=== PATIENT | female | born 1945 | race Hispanic/Latino ===

== ENCOUNTER → 2017-08-23 | Outpatient (CLI) | payer OTHER ==
[~2017-08-23] MED LIST: ATOR40TA71 PO; ESOM40CA54 PO; ISOS30TA11 PO; METO-408 PO; REGADENOSON 0.4 MG/5 ML PF SYG IVP SCH
== END | disposition home or self-care (01) ==
LOC: SHCH 08:16
PROVIDERS: ATTEND Internal Medicine Cardiovascular Disease
DX: R07.9 Chest pain, unspecified (principal); R06.02 Shortness of breath
CPT/HCPCS: 78452; 93017; 96374; A9500 ×2; J2785

== ENCOUNTER 2017-09-05 07:38 | Day surgery (SDC) | payer OTHER ==
[2017-09-01 10:40] VITALS: BP 142/77
[2017-09-01 11:03] LABS: BASOPHILS % (AUTO) 0.5 % (0.0-5.0); EOSINOPHILS % (AUTO) 2.2 % (0.0-8.0); HEMATOCRIT 36.2 % (36-48); LYMPHOCYTES % (AUTO) 30.6 % (21.0-51.0); MEAN CORPUSCULAR HEMOGLOBIN 22.6 pg (27.0-33.0); MEAN CORPUSCULAR HGB CONC 31.8 g/dL (32.0-36.0); MEAN CORPUSCULAR VOLUME 71.2 fL (79-99); MONOCYTES % (AUTO) 9.1 % (3.0-13.0); NEUTROPHILS % (AUTO) 57.6 % (40.0-77.0); NUCLEATED RED BLOOD CELLS 0.1 % (0.0-0.19); PLATELET COUNT (AUTO) 349 K/uL (130-400); RED BLOOD CELL COUNT(AUTO) 5.09 MIL/uL (4.00-5.50); RED CELL DISTRIBUTION WIDTH 18.4 % (11.0-15.5)
[2017-09-01 11:06] LABS: APPEARANCE,URINE Clear (CLEAR); BILIRUBIN,URINE Negative (NEGATIVE); COLOR,URINE Yellow (YELLOW); GLUCOSE, URINE (UA) Negative (NEGATIVE); KETONES,URINE Negative (NEGATIVE); LEUKOCYTE ESTERASE ,URINE Small (NEGATIVE); NITRATE,URINE Negative (NEGATIVE); OCCULT BLOOD,URINE Negative (NEGATIVE); PH,URINE 7.5 (5.0-8.0); PROTEIN,URINE Negative (NEGATIVE)
[2017-09-01 11:10] LABS: CREATININE 0.9 mg/dL (0.5-1.5)
[2017-09-01 11:13] LABS: BACTERIA,URINE Rare /HPF (None Seen); SQUAMOUS EPITHELIAL CELL,UR Few /HPF (0-2); WBC,URINE 0-1 /HPF (0-1)
[2017-09-01 11:38] LABS: INR 0.94 (0.85-1.15); PARTIAL THROMBOPLASTIN TIME 25.7 SEC (26.3-35.5); PROTHROMBIN TIME 9.9 SEC (9.6-11.6)
[2017-09-05] VITALS (9 sets, daily range): BP systolic 100–140; BP diastolic 60–88
[~2017-09-05] VITALS: Ht 160 cm; Wt 58.2 kg
[~2017-09-05 07:38] MED LIST changes: -REGADENOSON 0.4 MG/5 ML PF SYG IVP SCH; +SODIUM CHLORIDE 0.9% 500ML 500 ML IV SCH
[2017-09-05] MEDS ORDERED: SODIUM CHLORIDE 0.9% 1000ML 1,000 ML IV ONE (08:45)
[2017-09-05] MEDS ORDERED: BUPIVACAINE/PF 0.25% 30ML VIAL IJ ONE (09:42)
[2017-09-05] MEDS ORDERED: IOHEXOL-350 50ML VIAL IV ONE (09:42)
[2017-09-05] MEDS ORDERED: NITROGLYCERIN 5 MG/ML 10 ML VIAL IV ONE (09:42)
[2017-09-05] MEDS ORDERED: IOHEXOL 350 MG/ML 100ML INFUS..BTL IV ONE (09:42)
[2017-09-05] MEDS ORDERED: LIDOCAINE HCL-MPF 2% 5ML VIAL ONE (10:06)
[2017-09-05] MEDS ORDERED: METOPROLOL TARTRATE 1 MG/ML 5ML VIAL IV PRN (10:30)
[2017-09-05] MEDS ORDERED: SODIUM CHLORIDE 0.9% 1000ML 1,000 ML IV SCH (10:30)
[2017-09-05] MEDS ORDERED: NITROGLYCERIN 0.4 MG SL TAB SL PRN (10:30)
[2017-09-05] MEDS ORDERED: DEXTROSE 50%-WATER 50 ML DISP.SYRIN IV PRN (10:30)
[2017-09-05] MEDS ORDERED: GLUCAGON 1MG KIT 1 MG ML IM PRN (10:30)
[2017-09-05] MEDS ORDERED: HYDRALAZINE HCL 20 MG/ML VIAL IV PRN (10:30)
== END 2017-09-05 14:55 | disposition home or self-care (01) ==
LOC: DAH 07:38
PROVIDERS: ATTEND Internal Medicine Cardiovascular Disease
DX: I25.10 Atherosclerotic heart disease of native coronary artery without angina pectoris (principal); I10 Essential (primary) hypertension; E78.5 Hyperlipidemia, unspecified; Z82.49 Family history of ischemic heart disease and other diseases of the circulatory system; Z79.899 Other long term (current) drug therapy; Z79.82 Long term (current) use of aspirin
CPT/HCPCS: 36415; 71045; 80048; 81001; 85025; 85610; 85730; 93005; 93458; A4606; C1760; C1894 ×3; J1644; J3490 ×2; J7030; Q9965; Q9967 ×2

== ENCOUNTER → 2019-04-24 | Outpatient (CLI) | payer OTHER ==
[~2019-04-24] MED LIST changes: -SODIUM CHLORIDE 0.9% 500ML 500 ML IV SCH
== END | disposition home or self-care (01) ==
LOC: RAH 08:39
PROVIDERS: ATTEND Internal Medicine Gastroenterology
DX: K44.9 Diaphragmatic hernia without obstruction or gangrene (principal); K21.9 Gastro-esophageal reflux disease without esophagitis; R13.10 Dysphagia, unspecified; D50.9 Iron deficiency anemia, unspecified
CPT/HCPCS: 74240

== ENCOUNTER → 2021-05-21 | Outpatient (CLI) | payer OTHER | END | disposition home or self-care (01) | LOC: RAH 10:34 | PROVIDERS: ATTEND Internal Medicine Gastroenterology | DX: K76.0 Fatty (change of) liver, not elsewhere classified (principal) | CPT/HCPCS: 76700 ==

== ENCOUNTER → 2021-06-04 | Outpatient (CLI) | payer OTHER | END | disposition home or self-care (01) | LOC: RAH 09:20 | PROVIDERS: ATTEND Internal Medicine Gastroenterology | DX: K44.9 Diaphragmatic hernia without obstruction or gangrene (principal); K21.9 Gastro-esophageal reflux disease without esophagitis | CPT/HCPCS: 74240 ==

== ENCOUNTER 2021-12-16 06:48 | Observation (INO) | payer OTHER, MEDICARE ==
[2021-12-10 12:59] LABS: BASOPHILS % (AUTO) 0.5 % (0.0-5.0); HEMATOCRIT 40.8 % (36-48); LYMPHOCYTES % (AUTO) 24.7 % (21.0-51.0); MEAN CORPUSCULAR HEMOGLOBIN 24.4 pg (27.0-33.0); MEAN CORPUSCULAR HGB CONC 30.9 g/dL (32.0-36.0); MEAN CORPUSCULAR VOLUME 78.9 fL (79-99); MONOCYTES % (AUTO) 9.9 % (3.0-13.0); NEUTROPHILS % (AUTO) 62.8 % (40.0-77.0); PLATELET COUNT (AUTO) 330 K/uL (130-400); RED BLOOD CELL COUNT(AUTO) 5.17 MIL/uL (4.00-5.50); RED CELL DISTRIBUTION WIDTH 16.5 % (11.0-15.5); WHITE BLOOD COUNT (AUTO) 7.5 K/uL (4.8-10.8)
[2021-12-10 13:08] LABS: CREATININE 0.8 mg/dL (0.5-1.5); POTASSIUM 4.3 mmol/L (3.5-5.1)
[2021-12-15 13:26] VITALS: BP 157/87
[2021-12-16] VITALS (26 sets, daily range): BP systolic 130–166; BP diastolic 57–88
[~2021-12-16] VITALS: Ht 162.6 cm; Wt 107.5 kg
[~2021-12-16 06:48] MED LIST changes: -ATOR40TA71 PO; -ESOM40CA54 PO; +GABA-529 PO; -ISOS30TA11 PO; +MV-M1TAB20 PO; +PANT40TA54 PO; +SUCR1TAB2 PO
[2021-12-16] MEDS ORDERED: CEFAZOLIN SODIUM 1 GM VIAL ONE (07:32)
[2021-12-16] MEDS ORDERED: LACTATED RINGERS 1000ML 1,000 ML IV ONE (07:32)
[2021-12-16] MEDS ORDERED: BUPIVACAINE/PF 0.25% 30ML VIAL IJ ONE (09:44)
[2021-12-16] MEDS ORDERED: FENTANYL CITRATE PF 50 MCG/1 ML 2ML VIAL ONE (11:55)
[2021-12-16] MEDS ORDERED: PROPOFOL 10 MG/ML 20ML VIAL IV ONE (11:55)
[2021-12-16] MEDS ORDERED: SUCCINYLCHOLINE 200MG/10ML SYR ONE (11:55)
[2021-12-16] MEDS ORDERED: ROCURONIUM 10MG/1ML SYR 10 MG/ML ML ONE (11:55)
[2021-12-16] MEDS ORDERED: LIDOCAINE PF 100MG/5ML (2%) SYRINGE 5ML ONE (11:55)
[2021-12-16] MEDS ORDERED: MEPERIDINE-PF 25 MG/ML SYG ONE ×2 (11:56→14:24)
[2021-12-16] MEDS ORDERED: CEFAZOLIN SODIUM 2 GM VIAL IV ONE (12:02)
[2021-12-16] MEDS ORDERED: KETOROLAC 15MG/ML VIAL (15MG/ML) ONE (12:23)
[2021-12-16] MEDS ORDERED: EPHEDRINE SULFATE 50 MG/ML AMPULE ONE (12:26)
[2021-12-16] MEDS ORDERED: GLYCOPYRROLATE 1 MG/5 ML SYRINGE ONE (14:21)
[2021-12-16] MEDS ORDERED: KETOROLAC 30MG VIAL (30MG/ML) ONE (14:22)
[2021-12-16] MEDS ORDERED: NEOSTIGMINE 5MG/5ML SYR IV ONE (14:22)
[2021-12-16] MEDS ORDERED: ONDANSETRON 4MG INJ ONE (14:24)
[2021-12-16] MEDS ORDERED: KETOROLAC 30MG VIAL (30MG/ML) IV PRN (15:00)
[2021-12-16] MEDS ORDERED: PROCHLORPERAZINE 10MG/2ML INJ IV PRN (15:00)
[2021-12-16] MEDS ORDERED: MORPHINE 4 MG SYG IVP PRN (15:00)
[2021-12-16] MEDS ORDERED: HYDROCODONE/ACETAMINOPHEN 7.5/325 MG 15 ML UDCUP PO PRN (15:00)
[2021-12-16] MEDS ORDERED: ONDANSETRON 4MG INJ IVP PRN (15:00)
[2021-12-16] MEDS: 1/2NS+20MEQ KCL/1000ML 1,000 ML IV SCH (17:12)
[2021-12-16] MEDS: ENOXAPARIN SODIUM 30 MG/0.3 ML SQ SCH (17:12)
[2021-12-17] MEDS: 1/2NS+20MEQ KCL/1000ML 1,000 ML IV SCH (01:00)
[2021-12-17] MEDS: ENOXAPARIN SODIUM 30 MG/0.3 ML SQ SCH (03:06)
[2021-12-17 03:37] VITALS: BP 150/50
[2021-12-17 08:00] VITALS: BP 93/64
[2021-12-17 12:00] VITALS: BP 105/84
[2021-12-17] MEDS ORDERED: ACETAMINOPHEN 325 MG TAB PO PRN (13:00)
== END 2021-12-17 15:30 | disposition home or self-care (01) ==
LOC: DAH 06:48 → INTOOBSV 06:49 → DAH 06:49 → DAHIP 06:49 → 4DH 16:01
PROVIDERS: ADMIT Surgery; ATTEND Surgery
DX: K44.0 Diaphragmatic hernia with obstruction, without gangrene (principal); Z20.822 Contact with and (suspected) exposure to COVID-19; K21.9 Gastro-esophageal reflux disease without esophagitis; E66.9 Obesity, unspecified; R10.13 Epigastric pain; Z79.899 Other long term (current) drug therapy; Z98.890 Other specified postprocedural states; Z68.41 Body mass index [BMI] 40.0-44.9, adult
CPT/HCPCS: 80048; 85025; 86850; 86900; 86901; 87426; 36415; 93005; 43282; 96374; 96372 ×2; 43235; 97161; 97116; A4663; A6207; J7120 ×2; A4215 ×2; J3480; J0690 ×2; J3010; J0330; J3490 ×3; J2710; J1650 ×2; J2704; J2405; J2270; J1885 ×2; J2175 ×2; G0168; A4649 ×3; A4930; C1781; A4223; A4222; A4221; J7030; A4600; G0378 ×7; J2001